=== PATIENT | male | born 1955 | race Caucasian/White ===

== ENCOUNTER 2024-07-18 10:27 | Outpatient (CLI) | payer MEDICARE, OTHER | END 2024-07-18 10:28 | disposition home or self-care (01) | LOC: CSHULT 10:27 | PROVIDERS: ATTEND Internal Medicine Gastroenterology | DX: R10.31 Right lower quadrant pain (principal); K59.00 Constipation, unspecified; K82.4 Cholesterolosis of gallbladder; N20.0 Calculus of kidney; K86.9 Disease of pancreas, unspecified; K76.0 Fatty (change of) liver, not elsewhere classified | CPT/HCPCS: 76705 ==

== ENCOUNTER 2024-08-12 10:18 | Outpatient (CLI) | payer MEDICARE, MEDICAID ==
[2024-08-12] MEDS ORDERED: Magnevist 469MG/ML 20 ML VIAL ONE (13:45)
== END 2024-08-12 10:19 | disposition home or self-care (01) ==
LOC: CSHMRI 10:18
PROVIDERS: ATTEND Internal Medicine Gastroenterology
DX: R93.5 Abnormal findings on diagnostic imaging of other abdominal regions, including retroperitoneum (principal); R10.31 Right lower quadrant pain; K86.2 Cyst of pancreas
CPT/HCPCS: 36415; 74183; 82565